=== PATIENT | male | born 1950 | race Caucasian/White ===

== ENCOUNTER 2017-06-08 17:15 | Emergency (ER) | payer MEDICARE, MEDICAID ==
--- NOTE | 2017-06-08 17:51 | ED Physician Chart ---
ED Chief Complaint/HPI - Patient Information Date Seen:: 06/08/17 Time Seen:: 17:17 Chief Complaint:: Jejunal tube dysfunction. History of Present Illness:: Brought in by ambulance from nursing facility because pt's jejunal tube does not function properly. Pt otherwise feels well without subjective complaint. Allergies:: Allergies Allergy/AdvReac Type Severity Reaction Status Date / Time Penicillins Allergy Verified 06/08/17 17:46 Vitals:: Vital Signs - 8 hr 06/08/17 17:39 Temp 97.5 F HR 68 RR 18 BP 117/62 O2 Sat % 100 Historian:: Patient, Medical Records (from transferring facility.) Family MD/PCP:: Dr. Viera LMP:: N/A Review:: Nurse's Note Reviewed ED Review of Systems - Review of Systems General/Constitutional: No fever, No weakness, No loss of appetite Skin: No rash, No bruising Head: No headache, No light-headedness Eyes: No loss of vision, No pain ENT: No earache, No sore throat Neck: No neck pain, No stiffness, No mass noted Cardio Vascular: No chest pain, No palpitations Pulmonary: No SOB, No cough, No wheezing GI: No nausea, No vomiting, No diarrhea, No pain G/U: Other (Pt has ESRD and is essentially anuric.) Musculoskeletal: No bone or joint pain Psychiatric: No prior psych history Hematopoietic: No bruising, No lymphadenopathy Allergic/Immuno: No urticaria, No angioedema Neurological: No syncope, No focal symptoms, No dizziness, No confusion ED Past Medical History - Past Medical History Past Medical History: HTN, DM, CAD, ESRD (? A. fibrillation. Chronic anemia.), Other Family History: None Social History: Non Smoker, No Alcohol, No Drug Use, , Care Facility Employment:: Retired. Surgical History: other (Jejunal tube placement about 1 1/2 months ago.) Psychiatricy History: None Medication: Reviewed Family Medical History - Family Member Mother History Unknown: Yes ED Physical Exam - Physical Examination General/Constitutional: Awake, Well-developed, well-nourished, Alert, No distress, Non-toxic appearing Other Gen/Cons comments:: Breathes comfortably, speaks clearly, and interacts appropriately. Head: Atraumatic Eyes: PERRL, EOMI Other Eyes comments:: Mildly pale conjunctiva. Skin: No rash, No ecchymosis, Well hydrated, No lymphadenopathy ENMT: External ears, nose nl, Nasal exam nl, Oropharynx nl Neck: Nontender, Full ROM w/o pain, No JVD, No nuchal rigidity, No mass, No stridor Respiratory: Nl effort/Exclusion, Clear to Auscultation, No Wheeze/Rhonchi/Rales Cardio Vascular: RRR, No murmur, gallop, rubs GI: No tenderness/rebounding/guarding, No organomegaly, No hernia, Normal BS's, Nondistended Other GI comments:: Jejunal tube noticed at [facility] with clean entry site. Other Extremities comments:: Minimal ankle edema bilaterally. Pt states that it is chronic. Neuro/Psych: Alert/oriented (oriented x 3), Mood normal, No focal deficits ED Septic Shock - . Is Septic Shock (SBP<90, OR Lactate>4 mmol\L) present?: No - <6hrs of presentation: Vital Signs: Vital Signs - 8 hr 06/08/17 17:39 Temp 97.5 F HR 68 RR 18 BP 117/62 O2 Sat % 100 ED Reassessment (Disposition) - Reassessment Reassessment:: 181 Pt's jejunal tube was unclogged per nursing staff. It is now fully functional without problem. Pt requests to return back to nursing facility now. Discussed with Dr. Viera on the phone. Pt is to be sent back to nursing facility by ambulance without further ER evaluation. He resumes care of pt from here on. Reassessment Condition:: Improved - Diagnosis Diagnosis:: Jejunal tube dysfunction, resolved. DM. stable. Accuchek 75. ESRD on hemodialysis. Chronic anemia. - Aftercare/Follow up Instructions Aftercare/Follow-Up Instructions:: Refer to Discharge Instructions Notes:: Continue present care per PCP Dr. Viera. Medication Prescribed:: None - Patient Disposition Discharge/Transfer:: [facility] - SNF Time:: 18:25 Condition at Disposition:: Stable, Improved ED Discharge Plan - Patient Disposition Admit/Discharge/Transfer: Discharge/Transfered to SNF Condition at Disposition: Improved Instructions: Tube Feeding Considerations, Feeding Tube Use Additional Instructions: Report given to Florence Roe RN from [facility].
== END 2017-06-08 18:40 ==
LOC: ER 17:15
DX: K94.13 Enterostomy malfunction (principal); E11.22 Type 2 diabetes mellitus with diabetic chronic kidney disease; I12.0 Hypertensive chronic kidney disease with stage 5 chronic kidney disease or end stage renal disease; N18.6 End stage renal disease; I25.10 Atherosclerotic heart disease of native coronary artery without angina pectoris; D53.9 Nutritional anemia, unspecified; Z99.2 Dependence on renal dialysis; Z88.0 Allergy status to penicillin
CPT/HCPCS: 82948-90; A4217; Z7502